=== PATIENT | male | born 1950 | race Caucasian/White ===

== ENCOUNTER 2017-10-04 16:42 | Inpatient (IN) | END 2017-10-06 15:47 | disposition home or self-care (01) | DRG 694 ==

== ENCOUNTER 2017-10-07 02:24 | Emergency (ER) | END 2017-10-07 04:53 | disposition home or self-care (01) ==

== ENCOUNTER 2017-10-07 22:36 | Emergency (ER) | END 2017-10-08 01:33 | disposition home or self-care (01) ==

== ENCOUNTER 2017-11-17 09:24 | Day surgery (SDC) | END 2017-11-18 12:49 | disposition home or self-care (01) ==